=== PATIENT | male | born 1955 | race Caucasian/White ===

== ENCOUNTER → 2017-06-16 | Outpatient (CLI) | payer BC ==
[2017-06-16 12:53] LABS: BUN 11 mg/dL (7-18)
[2017-06-16 12:54] LABS: GFR (ESTIMATED) 85 ML/MIN (>60)
== END ==
LOC: LAB 11:44
PROVIDERS: Surgery
DX: R10.11 Right upper quadrant pain (principal); R11.0 Nausea